=== PATIENT | male | born 1980 | race Caucasian/White ===

== ENCOUNTER 2018-11-03 01:51 | Outpatient (CLI) | payer BC, SELFPAY ==
[2018-11-03 12:43] LABS: Anion Gap 6.2 mmol/L (3-11); BUN 31 mg/dL (7-18); CO2 30.8 mmol/L (21.0-32.0); CREATININE 1.26 mg/dL (0.70-1.30); Chloride 102 mmol/L (98-107); Cholesterol 235 mg/dL (50-200); Glucose 83 mg/dL (70-100); HDL Cholesterol 56 mg/dL (40-60); LDL CHOLESTEROL 154 mg/dL (<100); Potassium 4.6 mmol/L (3.5-5.1); Sodium 139 mmol/L (136-145); Triglyceride 52 mg/dL (30-150)
== END 2018-11-03 02:11 ==
PROVIDERS: PCP Family Medicine; Visit Provider Family Medicine
DX: E78.5 Hyperlipidemia, unspecified (principal)
CPT/HCPCS: 36415; 80048; 80061; 83721

== ENCOUNTER 2021-01-22 08:47 | Outpatient (REF) | payer BC, SELFPAY ==
[2021-01-22 13:30] LABS: Hemoglobin A1C 5.2 % (<5.7)
[2021-01-22 13:34] LABS: ALT 95 U/L (16-63); AST 40 U/L (15-37); Alkaline Phosphatase 62 U/L (46-116); Anion Gap 7.1 mmol/L (3-11); BUN 25 mg/dL (7-18); Bilirubin, Total 0.5 mg/dL (0.2-1.0); CO2 28.9 mmol/L (21.0-32.0); CREATININE 1.1 mg/dL (0.70-1.30); Calcium 8.9 mg/dL (8.5-10.1); Calculated LDL 168 mg/dL (<100); Chloride 105 mmol/L (98-107); Cholesterol 231 mg/dL (<200); Glucose 135 mg/dL (74-106); HDL Cholesterol 43 mg/dL (40-60); Sodium 141 mmol/L (136-145); TSH 1.31 uIU/mL (0.36-3.74); Total Protein 6.9 g/dL (6.4-8.2); Triglyceride 104 mg/dL (<150)
== END 2021-01-22 08:48 | disposition home or self-care (01) ==
LOC: LBN 08:47
PROVIDERS: PCP Family Medicine; Visit Provider Nurse Practitioner Family
DX: Z00.00 Encounter for general adult medical examination without abnormal findings (principal); Z13.220 Encounter for screening for lipoid disorders; Z13.1 Encounter for screening for diabetes mellitus; Z13.29 Encounter for screening for other suspected endocrine disorder
CPT/HCPCS: 80053; 80061; 83036; 84443

== ENCOUNTER 2023-02-03 02:45 | Outpatient (CLI) | payer BC, SELFPAY ==
[2023-02-03 17:15] LABS: ALT 74 U/L (16-63); AST 28 U/L (15-37); Albumin 3.9 g/dL (3.4-5.0); Alkaline Phosphatase 65 U/L (46-116); Anion Gap 8.5 mmol/L (3-11); BUN 34 mg/dL (7-18); Bilirubin, Total 0.4 mg/dL (0.2-1.0); CO2 28.5 mmol/L (21.0-32.0); CREATININE 1.5 mg/dL (0.70-1.30); Calcium 8.7 mg/dL (8.5-10.1); Calculated LDL 130 mg/dL (<100); Chloride 109 mmol/L (98-107); Cholesterol 216 mg/dL (<200); Estimated GFR 59.61 (mL/min/1.73m2); Glucose 107 mg/dL (74-106); HDL Cholesterol 44 mg/dL (40-60); Potassium 4.3 mmol/L (3.5-5.1); Sodium 146 mmol/L (136-145); Total Protein 6.9 g/dL (6.4-8.2); Triglyceride 211 mg/dL (<150)
== END 2023-02-03 02:46 | disposition home or self-care (01) ==
PROVIDERS: PCP Nurse Practitioner Family; Visit Provider Nurse Practitioner Family
DX: K76.0 Fatty (change of) liver, not elsewhere classified (principal); Z13.220 Encounter for screening for lipoid disorders
CPT/HCPCS: 36415; 80053; 80061

== ENCOUNTER → 2023-03-20 03:07 | Outpatient (CLI) | payer BC, SELFPAY ==
--- NOTE | 2023-03-20 16:12 | DI.RAD_ITS ---
Exam(s) XR KNEE RT 3V AP,LAT,ROSALIE EXAM: XR KNEE RT 3V AP,LAT,ROSALIE CLINICAL HISTORY: Right knee pain,M25.561. TECHNIQUE: 2D digital imaging was performed. COMPARISON: No exams were available for comparison FINDINGS: 3 views No evidence of acute fracture nor obvious joint effusion. There are moderate degenerative changes in the medial lateral compartments. No osteochondral defects. Bone density normal. No osseous lesion s. IMPRESSION: Moderate degenerative changes. No fracture nor joint effusion. DATA REPOSITORY: RADIATION DOSE DELIVERED:
== END ==
PROVIDERS: PCP Nurse Practitioner Family; Visit Provider Nurse Practitioner Family
DX: M25.561 Pain in right knee (principal)
CPT/HCPCS: 73562

== ENCOUNTER 2024-02-16 01:32 | Outpatient (CLI) | payer BC, SELFPAY ==
[2024-02-16 16:32] LABS: Hemoglobin A1C 5.2 % (<5.7)
[2024-02-16 17:19] LABS: ALT 77 U/L (16-63); AST 28 U/L (15-37); Albumin 3.8 g/dL (3.4-5.0); Alkaline Phosphatase 69 U/L (46-116); Anion Gap 6.2 mmol/L (3-11); BUN 26 mg/dL (7-18); Bilirubin, Total 0.47 mg/dL (0.2-1.0); CO2 28.8 mmol/L (21.0-32.0); CREATININE 1.2 mg/dL (0.70-1.30); Calcium 8.6 mg/dL (8.5-10.1); Calculated LDL 156 mg/dL (<100); Chloride 103 mmol/L (98-107); Cholesterol 240 mg/dL (<200); Estimated GFR 77.43 (mL/min/1.73m2); Glucose 105 mg/dL (74-106); HDL Cholesterol 44 mg/dL (40-60); Sodium 138 mmol/L (136-145); Total Protein 6.9 g/dL (6.4-8.2); Triglyceride 201 mg/dL (<150)
== END 2024-02-16 01:33 | disposition home or self-care (01) ==
PROVIDERS: PCP Nurse Practitioner Family; Visit Provider Nurse Practitioner Family
DX: Z13.1 Encounter for screening for diabetes mellitus (principal); E88.01 Alpha-1-antitrypsin deficiency; Z13.220 Encounter for screening for lipoid disorders
CPT/HCPCS: 36415; 80053; 80061; 83036

== ENCOUNTER 2025-02-14 01:04 | Outpatient (CLI) | payer BC, SELFPAY ==
[2025-02-14 16:56] LABS: Hemoglobin A1C 5.3 % (<5.7)
[2025-02-14 17:40] LABS: Cholesterol 275 mg/dL (<200); HDL Cholesterol 42 mg/dL (>or=40); Triglyceride 420 mg/dL (<150)
[2025-02-14 17:51] LABS: LDL CHOLESTEROL 191 mg/dL (<100)
== END 2025-02-14 01:05 | disposition home or self-care (01) ==
LOC: LBO 01:04
PROVIDERS: PCP Nurse Practitioner Family; Visit Provider Nurse Practitioner Family
DX: Z13.1 Encounter for screening for diabetes mellitus (principal); Z13.220 Encounter for screening for lipoid disorders
CPT/HCPCS: 36415; 80061; 83721; 83036